=== PATIENT | male | born 1950 | race Caucasian/White ===

== ENCOUNTER 2018-05-30 07:24 | Day surgery (SDC) | payer MEDICARE, MEDICAID ==
[2018-05-29 13:06] LABS: BASOPHILS % (AUTO) 0.4 % (0-1); EOSINOPHILS # (AUTO) 0.3 X10'3 (0-0.9); EOSINOPHILS % (AUTO) 3.9 % (0-6); LYMPHOCYTES # (AUTO) 2.3 X10'3 (1.1-4.8); LYMPHOCYTES % (AUTO) 30.3 % (21-51); MEAN CORPUSCULAR HEMOGLOBIN 30.9 PG (27.0-31.0); MEAN CORPUSCULAR HGB CONC 34.3 g/dL (33.0-36.5); MEAN CORPUSCULAR VOLUME 89.9 FL (78-98); MEAN PLATELET VOLUME 8.1 FL (7.4-10.4); MONOCYTES # (AUTO) 0.5 X10'3 (0-0.9); MONOCYTES % (AUTO) 6.7 % (2-12); NEUTROPHILS # (AUTO) 4.4 X10'3 (1.8-7.7); NEUTROPHILS % (AUTO) 58.7 % (42-75); PRE OP HEMOGLOBIN 14.4 g/dL (14.0-17.9); RED BLOOD COUNT 4.67 X10'6 (4.70-6.10); RED CELL DISTRIBUTION WIDTH 14.1 % (11.5-14.5)
[2018-05-29 13:08] LABS: CLARITY,URINE CLEAR (Clear); COLOR,URINE YELLOW (Yellow); GLUCOSE, URINE NEGATIVE (Neg); KETONES,URINE NEGATIVE (Neg); LEUKOCYTE ESTERASE ,URINE NEGATIVE (Neg); NITRITES, URINE NEGATIVE (Neg); OCCULT BLOOD,URINE NEGATIVE (Neg); PROTEIN,URINE NEGATIVE (Neg); UROBILINOGEN,URINE 0.2 E.U/dL (0.2-1.0)
[2018-05-29 13:12] LABS: UA COLLECTION TYPE CLN CATCH MIDSTREAM
[2018-05-29 13:17] LABS: PRE OP PLATELET COUNT 99 X10'3 (140-440)
[2018-05-29 13:29] LABS: ALBUMIN 3.8 G/DL (3.4-5.0); ALBUMIN/GLOBULIN RATIO 1.2 (1.1-1.5); ALKALINE PHOSPHATASE 75 IU/L (46-116); BLOOD UREA NITROGEN 10 MG/DL (7-18); BUN/CREATININE RATIO 9.7 (5.4-32.0); CALCIUM 8.9 MG/DL (8.5-10.1); CHLORIDE 105 MMOL/L (99-107); CREATININE 1.03 MG/DL (0.60-1.10); PRE OP ALT 22 U/L (30-65); PRE OP ANION GAP 10 (8-16); PRE OP AST 18 U/L (10-37); PRE OP BILIRUB, TOTAL 0.5 MG/DL (0.0-1.0); PRE OP GLUCOSE 81 MG/DL (70-104); PRE OP POTASSIUM 3.8 MMOL/L (3.4-5.1); PRE OP SODIUM 141 MMOL/L (135-145); TOTAL CARBON DIOXIDE 25.6 MMOL/L (24-32); eGFR 71 ML/MIN
[2018-05-30] VITALS (14 sets, daily range): BP systolic 119–160; BP diastolic 52–95
[~2018-05-30] VITALS: Ht 165.1 cm; Wt 64.0 kg
[~2018-05-30 07:24] MED LIST: ALBU18HF2 INH; ASPI81TA30 PO; CLINDAmcin 900mg/NS 50ml IVPB 50 ML IV ONE; CLON-514 PO; CYCL5TAB PO; FLUT16SP2 BOTHNARES; IBUP-24 PO; SERT100T PO; albuterol 2.5 MG/3 ML nebule NEB ONE; famotidine 20mg tablet PO ONE; ringers solution, lacted 1,000 ML IV SCH
[2018-05-30] MEDS ORDERED: BUPIVAcaine/PF 2.5mg/ml (0.25%) 10ml vial ONE (09:35)
[2018-05-30] MEDS ORDERED: ceFAZolin 1000mg inj ONE (09:35)
[2018-05-30] MEDS ORDERED: sevoflurane 250ml liquid IH ONE (09:56)
[2018-05-30] MEDS ORDERED: fentaNYL/PF 50MCG/1 ML 2ML syringe ONE (10:01)
[2018-05-30] MEDS ORDERED: gentamicin 40 MG/1 ML inj ONE ×2 (10:16→10:17)
[2018-05-30] MEDS ORDERED: propofol inj 20 ML IV ONE (10:44)
[2018-05-30] MEDS ORDERED: LIDOcaine 2% (20mg/ml) 5ml vial ONE (10:44)
[2018-05-30] MEDS ORDERED: dexamethasone sod phosphate 4mg/ml inj. ONE (10:45)
[2018-05-30] MEDS ORDERED: ondansetron/PF 4mg/2ml inj ONE (10:45)
--- NOTE | 2018-05-30 10:55 | NUR ---
Received from OR via , accompanied by DR. LEGER, Anesthesiologist and report given by Anesthesiolgist. S/P LT. INGUINAL HERNIA REPAIR PER DR. TATUM. PT. AROUSES TO NAME. RESPS. EVEN & UNLABORED. LT. ABD. BANDAGE DRY & INTACT. ABD. SOFT. LT. ARM IV PATENT. PT. SHAKES HEAD NO TO PAIN. REASSURED.
[2018-05-30] MEDS ORDERED: ringers solution, lacted 1,000 ML IV SCH (10:56)
[2018-05-30] MEDS ORDERED: ondansetron/PF 4mg/2ml inj IV PRN (11:00)
[2018-05-30] MEDS ORDERED: HYDROmorphone inj. 0.5 MG/0.5 ML DISP.SYRIN IV PRN ×2 (11:00)
[2018-05-30] MEDS ORDERED: meperidine/PF 25mg/ml syringe IV PRN (11:00)
[2018-05-30] MEDS: meperidine/PF 25mg/ml syringe IV PRN ×3 (11:10→12:05)
--- NOTE | 2018-05-30 11:30 | NUR ---
MEDICATED FOR PAIN. REASSURED.
--- NOTE | 2018-05-30 12:08 | NUR ---
TAKING SIPS WATER WITHOUT UPSET. VOIDED, VIA URINAL [address] CL. YELLOW URINE. MEDICATED FOR PAIN. REASSURED.
--- NOTE | 2018-05-30 12:30 | NUR ---
PT. SITTING UP @ BEDSIDE. TOLERATED WELL. DRESSED W/ MINIMAL ASSIST. STEADY ON FEET. DENIES DIZZINESS/WEAKNESS/NAUSEA. FRIEND @ BEDSIDE. ACI'S REVIEWED W/ UNDERSTANDING OF SAME. MEDS DELIVERED PER RUCKER PLACED IN BELONGING BAG. IV DC'D CANNULA INTACT. AWAITING RIDE.
--- NOTE | 2018-05-30 12:40 | NUR ---
VOIDED [address]. YELLOW URINE WITHOUT DIFFICULTY.
--- NOTE | 2018-05-30 13:00 | NUR ---
TRANSFERED TO [facility] VIA GURNEY TO AWAIT RIDE ARRIVAL. PT. A X O X 4. APPROP. RESPS. EVEN & UNLABORED. ABD. SOFT, LT. ABD. BANDAGE DRY & INTACT. STATES PAIN 10/02, REASSURED. FRIEND @ BEDSIDE. OFFERS NO CONCERNS @ THIS TIME.
--- NOTE | 2018-05-30 13:06 | NUR ---
PATIENT ARRIVED RO 245A ON GURNEY FROM RECOVERY. VSS CHARTED. PATIENT RESTING IN BED, WAITING GOT RIDE.
--- NOTE | 2018-05-30 13:46 | NUR ---
PATIENT DISCHARGE TO PERSONAL VEHICLE WITH ALL PERSONAL BELONGINGS ACCOMPANIED BY STAFF AND FAMILY.
== END 2018-05-30 13:51 | disposition home or self-care (01) ==
LOC: PAS 07:24
PROVIDERS: ATTEND Surgery
DX: K40.91 Unilateral inguinal hernia, without obstruction or gangrene, recurrent (principal); K40.90 Unilateral inguinal hernia, without obstruction or gangrene, not specified as recurrent; I71.4 Abdominal aortic aneurysm, without rupture; J44.9 Chronic obstructive pulmonary disease, unspecified; F17.210 Nicotine dependence, cigarettes, uncomplicated; H91.8X3 Other specified hearing loss, bilateral; F32.89 Other specified depressive episodes; F41.8 Other specified anxiety disorders; Z87.09 Personal history of other diseases of the respiratory system; Z87.01 Personal history of pneumonia (recurrent); Z90.49 Acquired absence of other specified parts of digestive tract; Z90.89 Acquired absence of other organs; Z86.79 Personal history of other diseases of the circulatory system; Z96.651 Presence of right artificial knee joint; Z79.82 Long term (current) use of aspirin; Z79.1 Long term (current) use of non-steroidal anti-inflammatories (NSAID); Z98.890 Other specified postprocedural states; Z79.899 Other long term (current) drug therapy; Z88.0 Allergy status to penicillin; Z88.5 Allergy status to narcotic agent; Z82.3 Family history of stroke; Z81.8 Family history of other mental and behavioral disorders; Z82.49 Family history of ischemic heart disease and other diseases of the circulatory system
CPT/HCPCS: 36415; 49520; 80053; 81003; 82948; 85025; 93005; 94640; A6449; C1781; J0690; J1100; J1580; J2001; J2175; J2405; J2704; J3010; J3490; A7000; J7120

== ENCOUNTER 2018-12-12 06:11 | Inpatient (IN) | payer MEDICARE, MEDICAID ==
[2018-12-11 12:14] LABS: PRE OP PROTIME 10.5 SECONDS (9.0-12.0)
[2018-12-11 12:17] LABS: ALBUMIN/GLOBULIN RATIO 1.1 (1.1-1.5); ALKALINE PHOSPHATASE 90 IU/L (46-116); BLOOD UREA NITROGEN 17 MG/DL (7-18); BUN/CREATININE RATIO 15.5 (5.4-32.0); CALCIUM 8.9 MG/DL (8.5-10.1); CHLORIDE 104 MMOL/L (99-107); PRE OP ALT 21 U/L (30-65); PRE OP ANION GAP 9 (8-16); PRE OP AST 16 U/L (10-37); PRE OP BILIRUB, TOTAL 0.6 MG/DL (0.0-1.0); PRE OP GLUCOSE 84 MG/DL (70-104); PRE OP SODIUM 141 MMOL/L (135-145); TOTAL CARBON DIOXIDE 28.2 MMOL/L (24-32); TOTAL PROTEIN 7.6 G/DL (6.4-8.2); eGFR 66 ML/MIN
[2018-12-11 12:26] LABS: BASOPHILS % (AUTO) 0.6 % (0-1); EOSINOPHILS # (AUTO) 0.3 X10'3 (0-0.9); EOSINOPHILS % (AUTO) 3.6 % (0-6); LYMPHOCYTES # (AUTO) 2.2 X10'3 (1.1-4.8); LYMPHOCYTES % (AUTO) 28.2 % (21-51); MEAN CORPUSCULAR HEMOGLOBIN 30.2 PG (27.0-31.0); MEAN CORPUSCULAR HGB CONC 33.2 g/dL (33.0-36.5); MEAN CORPUSCULAR VOLUME 90.9 FL (78-98); MEAN PLATELET VOLUME 8.5 FL (7.4-10.4); MONOCYTES # (AUTO) 0.6 X10'3 (0-0.9); MONOCYTES % (AUTO) 7.6 % (2-12); NEUTROPHILS # (AUTO) 4.7 X10'3 (1.8-7.7); PRE OP HEMATOCRIT 45.6 % (42.0-52.0); PRE OP HEMOGLOBIN 15.2 g/dL (14.0-17.9); RED BLOOD COUNT 5.02 X10'6 (4.70-6.10); RED CELL DISTRIBUTION WIDTH 14.1 % (11.5-14.5)
[2018-12-11 12:31] LABS: PRE OP PLATELET COUNT 95 X10'3 (140-440)
[2018-12-11 12:50] LABS: CLARITY,URINE CLEAR (Clear); COLOR,URINE YELLOW (Yellow); GLUCOSE, URINE NEGATIVE (Neg); KETONES,URINE NEGATIVE (Neg); LEUKOCYTE ESTERASE ,URINE NEGATIVE (Neg); NITRITES, URINE NEGATIVE (Neg); OCCULT BLOOD,URINE NEGATIVE (Neg); PROTEIN,URINE NEGATIVE (Neg); UROBILINOGEN,URINE 0.2 E.U/dL (0.2-1.0)
[2018-12-11 12:54] LABS: UA COLLECTION TYPE CLN CATCH MIDSTREAM
[2018-12-12] VITALS (20 sets, daily range): BP systolic 130–164; BP diastolic 83–101
[~2018-12-12] VITALS: Ht 167.6 cm; Wt 62.3 kg
[~2018-12-12 06:11] MED LIST changes: -CLINDAmcin 900mg/NS 50ml IVPB 50 ML IV ONE; +clindamycin-Cleocin 900mg/D5W 50 ML IV ONE; -ringers solution, lacted 1,000 ML IV SCH
[2018-12-12] MEDS ORDERED: ipratropium/albuterol 3ml nebule ONE (07:47)
[2018-12-12] MEDS ORDERED: ipratropium/albuterol 3ml nebule NEB PRN (07:55)
[2018-12-12] MEDS ORDERED: LIDOcaine 1% (10mg/ml) 2ml vial ONE (08:12)
[2018-12-12] MEDS ORDERED: fentaNYL /PF 50mcg/ml 5ml ampule ONE (08:37)
[2018-12-12] MEDS ORDERED: sevoflurane 250ml liquid IH ONE (08:51)
[2018-12-12] MEDS ORDERED: BUPIVAcaine/PF 2.5 mg/ml (0.25%) 30ml vial ONE (09:27)
[2018-12-12] MEDS ORDERED: fentaNYL/PF 50MCG/1 ML 2ML syringe ONE (10:29)
--- NOTE | 2018-12-12 10:30 | NUR ---
ADMITTED TO PACU FROM OR ACCOMPANIED BY ANESTHESIA. INTIAL PHYSICAL ASSESSMENT DONE AND RECORDED. AWAKE AND RESPONSE ON ARRIVE YO PACU, REPORT RECEIVED FROM ANESTHESIA. JRIGHT RADIAL ART LINE AND CVP AIR ZEROED AND CALIBRATED WITH GOOD WAVE FORM. MEDICATED FOR SHIVERING ON ARRIVVAL. COMPLAINING OF PAIN, ALSO MEDICATED FOR PAIN.
[2018-12-12] MEDS ORDERED: ringers solution, lacted 1,000 ML IV SCH (10:37)
[2018-12-12] MEDS ORDERED: ondansetron/PF 4mg/2ml inj IV PRN (10:40)
[2018-12-12] MEDS ORDERED: HYDROmorphone inj. 0.5 MG/0.5 ML DISP.SYRIN IV PRN (10:40)
[2018-12-12] MEDS ORDERED: fentaNYL/PF 50MCG/1 ML 2ML syringe IV PRN (10:40)
[2018-12-12] MEDS ORDERED: meperidine/PF 25mg/ml syringe ONE (10:44)
[2018-12-12] MEDS ORDERED: labetalol 20mg/4ml (5mg/ml) syringe IV ONE (11:04)
[2018-12-12] MEDS ORDERED: propofol inj 20 ML IV ONE (11:04)
[2018-12-12] MEDS ORDERED: dexamethasone sod phosphate 4mg/ml inj. ONE (11:04)
[2018-12-12] MEDS ORDERED: ondansetron/PF 4mg/2ml inj ONE (11:04)
[2018-12-12] MEDS ORDERED: LIDOcaine 2% (20mg/ml) 5ml vial ONE (11:04)
[2018-12-12] MEDS ORDERED: glycopyrrolate 0.2mg/ml inj ONE (11:04)
[2018-12-12] MEDS ORDERED: rocuronium 10mg/ml inj IV ONE (11:04)
[2018-12-12] MEDS ORDERED: neostigmine methylsulfate 1 MG/ML 10ml vial ONE (11:04)
[2018-12-12] MEDS: fentaNYL/PF 50MCG/1 ML 2ML syringe IV PRN ×2 (11:23→11:36)
--- NOTE | 2018-12-12 12:05 | NUR ---
PACU DISCHARGE CRITERIA MET, REPORT GIVEN TO FLOOR. DENIES PAIN OR DISCOMFORT, TRANSFERRED TO ROOM IN STABLE GOOD CONDITION. UPDATE TO DR. LANGLEY REGARDING POST OP CHEST FILM, WILL SEE PT ON SURGICAL FLOOR.
[2018-12-12] MEDS: HYDROmorphone/NS 1 mg/ml CADD 50 ML IV SCH ×7 (12:35→23:00)
[2018-12-12] MEDS: ringers solution, lacted 1,000 ML IV SCH ×2 (12:37→18:34)
--- NOTE | 2018-12-12 18:17 | NUR ---
Patient in room [facility]. I have received report from JOSEPHINE Summers and had the opportunity to ask questions and assume patient care.
[2018-12-12] MEDS ORDERED: furosemide 10 MG/1 ML 10ml inj IV ONE (18:30)
[2018-12-12] MEDS ORDERED: cyclobenzaprine 10mg tablet PO PRN (18:45)
[2018-12-12] MEDS ORDERED: albuterol 2.5 MG/3 ML nebule NEB PRN (18:45)
--- NOTE | 2018-12-12 19:36 | NUR ---
JOSEPHINE Jordan double checked demand dosage change for patient's CADD pump to 0.3mg from 0.2mg per protocol
[2018-12-12] MEDS: ipratropium/albuterol 3ml nebule NEB SCH ×2 (19:53→23:36)
[2018-12-12] MEDS: clonazePAM 1mg tablet PO SCH (21:26)
[2018-12-13] VITALS: BP_SYST 81
[2018-12-13] MEDS: HYDROmorphone/NS 1 mg/ml CADD 50 ML IV SCH ×12 (01:00→23:00)
[2018-12-13] MEDS: ipratropium/albuterol 3ml nebule NEB SCH ×5 (03:09→19:30)
[2018-12-13 04:00] VITALS: BP 107/84
--- NOTE | 2018-12-13 06:29 | NUR ---
Problems reprioritized. Patient report given, questions answered & plan of care reviewed with JOSEPHINE Summers.
[2018-12-13] MEDS: fluticasone nasal spray 16GM bottle NS SCH (07:48)
[2018-12-13] MEDS: sertraline 50mg tablet PO SCH (07:49)
[2018-12-13] MEDS: aspirin 81mg tab.chew PO SCH (07:49)
[2018-12-13 08:00] VITALS: BP 106/83
[2018-12-13 11:00] VITALS: BP 100/80
--- NOTE | 2018-12-13 11:22 | NUR ---
breathing tx stopped early due to heart rate. RN notified. Addendum: 12/13/18 at 1122 by Alissa Dubose RT Amended: Links added.
[2018-12-13 11:28] LABS: BASOPHILS % (AUTO) 0.3 % (0-1); EOSINOPHILS % (AUTO) 0.1 % (0-6); HEMATOCRIT 52.3 % (42.0-52.0); HEMOGLOBIN 17.7 g/dl (14.0-17.9); LYMPHOCYTES # (AUTO) 1.3 X10'3 (1.1-4.8); LYMPHOCYTES % (AUTO) 7.1 % (21-51); MEAN CORPUSCULAR HEMOGLOBIN 30.6 PG (27.0-31.0); MEAN CORPUSCULAR HGB CONC 33.7 g/dL (33.0-36.5); MEAN CORPUSCULAR VOLUME 90.8 FL (78-98); MEAN PLATELET VOLUME 8.4 FL (7.4-10.4); MONOCYTES # (AUTO) 2.1 X10'3 (0-0.9); MONOCYTES % (AUTO) 11.6 % (2-12); NEUTROPHILS # (AUTO) 14.5 X10'3 (1.8-7.7); NEUTROPHILS % (AUTO) 80.9 % (42-75); PLATELET COUNT 137 X10'3 (140-440); RED BLOOD COUNT 5.76 X10'6 (4.70-6.10); RED CELL DISTRIBUTION WIDTH 14.3 % (11.5-14.5); WHITE BLOOD COUNT 17.9 X10'3 (4.5-11.0)
[2018-12-13 11:39] LABS: ALANINE AMINOTRANSFERASE 86 U/L (12-78); ALBUMIN 4.3 G/DL (3.4-5.0); ALKALINE PHOSPHATASE 109 IU/L (46-116); ANION GAP 11 (8-16); ASPARTATE AMINO TRANSFERASE 51 U/L (10-37); BILIRUBIN,TOTAL 1.7 MG/DL (0.1-1.0); BLOOD UREA NITROGEN 17 MG/DL (7-18); BUN/CREATININE RATIO 11.5 (5.4-32.0); CALCIUM 9.1 MG/DL (8.5-10.1); CHLORIDE 102 MMOL/L (99-107); CREATININE 1.48 MG/DL (0.60-1.10); GLUCOSE 142 MG/DL (70-104); POTASSIUM 4.7 MMOL/L (3.5-5.1); SODIUM 141 MMOL/L (135-145); TOTAL CARBON DIOXIDE 27.9 MMOL/L (24-32); TOTAL PROTEIN 8.4 G/DL (6.4-8.2); eGFR 47 ML/MIN
--- NOTE | 2018-12-13 12:15 | NUR ---
24 hour tele order placed.
[2018-12-13] MEDS ORDERED: carVEDilol 12.5mg tablet PO ONE (12:55)
[2018-12-13 14:15] LABS: PLATELET ESTIMATE DECREASED; TOTAL CELLS COUNTED 100
--- NOTE | 2018-12-13 15:58 | NUR ---
NG removed, FC removed, patient tolerated well.
[2018-12-13 18:00] VITALS: BP 97/74
--- NOTE | 2018-12-13 18:25 | NUR ---
Patient in room [facility]. I have received report from JOSEPHINE Summers and had the opportunity to ask questions and assume patient care.
[2018-12-13] MEDS: clonazePAM 1mg tablet PO SCH (20:45)
[2018-12-13] MEDS: carvedilol 6.25mg tablet PO SCH (20:46)
--- NOTE | 2018-12-13 21:00 | NUR ---
Central line discontinued. pt tolerated well. will continue to monitor
[2018-12-13] MEDS ORDERED: pneumococcal 23-VAL P-sac vacc 25 mcg/0.5ml vial IMVAC ONE (21:05)
[2018-12-13] MEDS ORDERED: magnesium 4gm in 100ml NS 100 ML IV PRN (21:10)
[2018-12-13] MEDS ORDERED: potassium CL 10mEq/100ml bag 100 ML IV PRN (21:10)
[2018-12-13] MEDS ORDERED: potassium Cl 20 mEq SR tablet PO PRN ×2 (21:10)
[2018-12-13] MEDS ORDERED: magnesium Cl slow-release 64mg tablet PO PRN (21:10)
--- NOTE | 2018-12-13 22:30 | NUR ---
attempted to ambulate pt. pt stood up out of bed twice, on second time stated "i'm having a head mcclendon" became nauseated and vomited. emesis appeared to be undigested dinner. placed back into bed. denies any further complaints of n/v. will continue to monitor
[2018-12-14] VITALS: BP 103/71
[2018-12-14] MEDS: HYDROmorphone/NS 1 mg/ml CADD 50 ML IV SCH ×12 (01:00→23:00)
[2018-12-14 05:05] LABS: ALANINE AMINOTRANSFERASE 69 U/L (12-78); ALBUMIN 3.8 G/DL (3.4-5.0); ALKALINE PHOSPHATASE 96 IU/L (46-116); ANION GAP 9 (8-16); ASPARTATE AMINO TRANSFERASE 33 U/L (10-37); BILIRUBIN,TOTAL 1.6 MG/DL (0.1-1.0); BLOOD UREA NITROGEN 32 MG/DL (7-18); BUN/CREATININE RATIO 15.6 (5.4-32.0); CALCIUM 9.1 MG/DL (8.5-10.1); CHLORIDE 102 MMOL/L (99-107); CREATININE 2.05 MG/DL (0.60-1.10); GLUCOSE 172 MG/DL (70-104); MAGNESIUM 2.2 MG/DL (1.5-2.4); PHOSPHORUS 3.1 MG/DL (2.3-4.5); POTASSIUM 4.1 MMOL/L (3.5-5.1); SODIUM 139 MMOL/L (135-145); TOTAL PROTEIN 7.8 G/DL (6.4-8.2); eGFR 32 ML/MIN
[2018-12-14] MEDS ORDERED: ringers solution, lacted 1,000 ML IV SCH (05:50)
--- NOTE | 2018-12-14 06:24 | NUR ---
Problems reprioritized. Patient report given, questions answered & plan of care reviewed with JOSEPHINE Gonzalez.
--- NOTE | 2018-12-14 06:25 | NUR ---
Patient in room [facility]. I have received report from JOSEPHINE Hernadez and had the opportunity to ask questions and assume patient care.
[2018-12-14 08:00] VITALS: BP 107/78
[2018-12-14] MEDS: carvedilol 6.25mg tablet PO SCH ×2 (08:21→20:38)
[2018-12-14] MEDS: aspirin 81mg tab.chew PO SCH (08:21)
[2018-12-14] MEDS: fluticasone nasal spray 16GM bottle NS SCH (08:21)
[2018-12-14] MEDS: sertraline 50mg tablet PO SCH (08:21)
[2018-12-14] MEDS ORDERED: normal saline 1000ml 1,000 ML IV ONE (09:50)
[2018-12-14 10:16] LABS: BASOPHILS % (AUTO) 0.2 % (0-1); EOSINOPHILS % (AUTO) 0 % (0-6); HEMATOCRIT 43.9 % (42.0-52.0); HEMOGLOBIN 14.8 g/dl (14.0-17.9); LYMPHOCYTES # (AUTO) 1.6 X10'3 (1.1-4.8); LYMPHOCYTES % (AUTO) 7.1 % (21-51); MEAN CORPUSCULAR HEMOGLOBIN 30.9 PG (27.0-31.0); MEAN CORPUSCULAR HGB CONC 33.8 g/dL (33.0-36.5); MEAN CORPUSCULAR VOLUME 91.3 FL (78-98); MEAN PLATELET VOLUME 8.9 FL (7.4-10.4); MONOCYTES % (AUTO) 13.7 % (2-12); NEUTROPHILS # (AUTO) 17.4 X10'3 (1.8-7.7); PLATELET COUNT 130 X10'3 (140-440)
[2018-12-14] MEDS: normal saline 1000ml 1,000 ML IV SCH ×2 (10:17→22:24)
[2018-12-14 12:00] VITALS: BP 118/82
[2018-12-14 18:00] VITALS: BP 109/77
--- NOTE | 2018-12-14 18:15 | NUR ---
Patient in room [facility]. I have received report from JOSEPHINE Gonzalez and had the opportunity to ask questions and assume patient care.
--- NOTE | 2018-12-14 18:23 | NUR ---
Problems reprioritized. Patient report given, questions answered & plan of care reviewed with JOSEPHINE Hernadez.
[2018-12-14] MEDS ORDERED: cefepime 2g/NS 100ml ADVANTAGE 100 ML IV ONE (20:30)
[2018-12-14] MEDS: clonazePAM 1mg tablet PO SCH (20:38)
[2018-12-14] MEDS ORDERED: vancomycin/NS 1 GM ADD-VANTAGE 250 ML X 1 DOSE IV SCH (21:00)
[2018-12-15] VITALS: BP 121/75
[2018-12-15] MEDS: HYDROmorphone/NS 1 mg/ml CADD 50 ML IV SCH ×12 (01:00→23:00)
[2018-12-15 04:48] LABS: BASOPHILS # (AUTO) 0.1 X10'3 (0-0.2); BASOPHILS % (AUTO) 0.3 % (0-1); EOSINOPHILS # (AUTO) 0.2 X10'3 (0-0.9); EOSINOPHILS % (AUTO) 0.8 % (0-6); HEMATOCRIT 34.3 % (42.0-52.0); HEMOGLOBIN 11.5 g/dl (14.0-17.9); LYMPHOCYTES # (AUTO) 1.1 X10'3 (1.1-4.8); LYMPHOCYTES % (AUTO) 5.7 % (21-51); MEAN CORPUSCULAR HEMOGLOBIN 30.3 PG (27.0-31.0); MEAN CORPUSCULAR HGB CONC 33.6 g/dL (33.0-36.5); MEAN CORPUSCULAR VOLUME 90.2 FL (78-98); MEAN PLATELET VOLUME 8.1 FL (7.4-10.4); MONOCYTES % (AUTO) 10.1 % (2-12); NEUTROPHILS # (AUTO) 16.6 X10'3 (1.8-7.7); NEUTROPHILS % (AUTO) 83.1 % (42-75); PLATELET COUNT 135 X10'3 (140-440); RED BLOOD COUNT 3.81 X10'6 (4.70-6.10); RED CELL DISTRIBUTION WIDTH 13.6 % (11.5-14.5)
[2018-12-15 05:00] LABS: ALANINE AMINOTRANSFERASE 47 U/L (12-78); ALBUMIN/GLOBULIN RATIO 0.9 (1.1-1.5); ALKALINE PHOSPHATASE 73 IU/L (46-116); ANION GAP 4 (8-16); ASPARTATE AMINO TRANSFERASE 35 U/L (10-37); BILIRUBIN,TOTAL 1.5 MG/DL (0.1-1.0); BLOOD UREA NITROGEN 21 MG/DL (7-18); BUN/CREATININE RATIO 21.9 (5.4-32.0); CALCIUM 7.7 MG/DL (8.5-10.1); CHLORIDE 104 MMOL/L (99-107); CREATININE 0.96 MG/DL (0.60-1.10); GLUCOSE 100 MG/DL (70-104); MAGNESIUM 1.8 MG/DL (1.5-2.4); PHOSPHORUS 1.6 MG/DL (2.3-4.5); POTASSIUM 3.9 MMOL/L (3.5-5.1); SODIUM 137 MMOL/L (135-145); TOTAL CARBON DIOXIDE 29.2 MMOL/L (24-32); TOTAL PROTEIN 6.3 G/DL (6.4-8.2); eGFR 77 ML/MIN
--- NOTE | 2018-12-15 06:38 | NUR ---
Problems reprioritized. Patient report given, questions answered & plan of care reviewed with JOSEPHINE Mitchell.
[2018-12-15 07:15] VITALS: BP 111/72
[2018-12-15] MEDS ORDERED: cefepime 2gm inj IV SCH (08:00)
[2018-12-15] MEDS: aspirin 81mg tab.chew PO SCH (08:17)
[2018-12-15] MEDS: carvedilol 6.25mg tablet PO SCH ×2 (08:17→19:58)
[2018-12-15] MEDS: sertraline 50mg tablet PO SCH (08:17)
[2018-12-15] MEDS: cefepime 2g/NS 100ml ADVANTAGE 100 ML IV SCH ×2 (08:17→20:49)
[2018-12-15] MEDS: fluticasone nasal spray 16GM bottle NS SCH (08:17)
[2018-12-15] MEDS ORDERED: pneumococcal 23-VAL P-sac vacc 25 mcg/0.5ml vial IMVAC ONE (09:00)
[2018-12-15] MEDS: vancomycin/NS 1 GM ADD-VANTAGE 250 ML X 1 DOSE IV SCH ×2 (10:05→22:21)
[2018-12-15 11:00] VITALS: BP 107/65
[2018-12-15] MEDS ORDERED: potassium phosphate inj 30 MMOL in normal saline 500ml IV soln 490 ML IV ONE (13:20)
[2018-12-15] MEDS: normal saline 1000ml 1,000 ML IV SCH (14:12)
[2018-12-15 18:00] VITALS: BP 114/62
--- NOTE | 2018-12-15 18:14 | NUR ---
Problems reprioritized. Patient report given, questions answered & plan of care reviewed with Janelle RN and JOSEPHINE Zuñiga.
[2018-12-15] MEDS: lactobacillus rhamnosus 10,000 MMU CELLS/CAPSULE PO SCH (19:58)
[2018-12-15 20:00] VITALS: BP 114/62
[2018-12-15] MEDS: clonazePAM 1mg tablet PO SCH (21:14)
[2018-12-16] VITALS: BP 126/76
[2018-12-16] MEDS: HYDROmorphone/NS 1 mg/ml CADD 50 ML IV SCH ×6 (01:00→11:00)
[2018-12-16] MEDS: normal saline 1000ml 1,000 ML IV SCH (05:10)
[2018-12-16 05:15] LABS: BASOPHILS # (AUTO) 0.1 X10'3 (0-0.2); BASOPHILS % (AUTO) 0.3 % (0-1); EOSINOPHILS # (AUTO) 0.5 X10'3 (0-0.9); HEMATOCRIT 28.4 % (42.0-52.0); HEMOGLOBIN 9.7 g/dl (14.0-17.9); LYMPHOCYTES # (AUTO) 1.1 X10'3 (1.1-4.8); LYMPHOCYTES % (AUTO) 7.4 % (21-51); MEAN CORPUSCULAR HEMOGLOBIN 31.1 PG (27.0-31.0); MEAN CORPUSCULAR HGB CONC 34.3 g/dL (33.0-36.5); MEAN CORPUSCULAR VOLUME 90.7 FL (78-98); MEAN PLATELET VOLUME 8.4 FL (7.4-10.4); MONOCYTES # (AUTO) 1.7 X10'3 (0-0.9); MONOCYTES % (AUTO) 11.1 % (2-12); NEUTROPHILS # (AUTO) 11.7 X10'3 (1.8-7.7); NEUTROPHILS % (AUTO) 78.2 % (42-75); PLATELET COUNT 151 X10'3 (140-440); RED BLOOD COUNT 3.13 X10'6 (4.70-6.10); RED CELL DISTRIBUTION WIDTH 13.6 % (11.5-14.5)
[2018-12-16 05:33] LABS: ALANINE AMINOTRANSFERASE 34 U/L (12-78); ALBUMIN 2.7 G/DL (3.4-5.0); ALBUMIN/GLOBULIN RATIO 0.9 (1.1-1.5); ALKALINE PHOSPHATASE 65 IU/L (46-116); ANION GAP 5 (8-16); ASPARTATE AMINO TRANSFERASE 26 U/L (10-37); BILIRUBIN,TOTAL 1.2 MG/DL (0.1-1.0); BLOOD UREA NITROGEN 15 MG/DL (7-18); CALCIUM 7.7 MG/DL (8.5-10.1); CHLORIDE 110 MMOL/L (99-107); CREATININE 0.75 MG/DL (0.60-1.10); GLUCOSE 100 MG/DL (70-104); MAGNESIUM 1.9 MG/DL (1.5-2.4); PHOSPHORUS 1.8 MG/DL (2.3-4.5); POTASSIUM 3.8 MMOL/L (3.5-5.1); SODIUM 140 MMOL/L (135-145); TOTAL CARBON DIOXIDE 25.2 MMOL/L (24-32); TOTAL PROTEIN 5.6 G/DL (6.4-8.2); eGFR > 90 ML/MIN
--- NOTE | 2018-12-16 06:35 | NUR ---
Problems reprioritized. Patient report given, questions answered & plan of care reviewed with JOSEPHINE Simmons.
--- NOTE | 2018-12-16 06:37 | NUR ---
Patient in room [facility]. I have received report from Janelle BURTON and had the opportunity to ask questions and assume patient care.
[2018-12-16 07:37] VITALS: BP 105/62
[2018-12-16] MEDS ORDERED: VANCOMYCIN LEVEL IV ONE (08:30)
[2018-12-16] MEDS: cefepime 2g/NS 100ml ADVANTAGE 100 ML IV SCH ×2 (08:33→21:04)
[2018-12-16] MEDS: lactobacillus rhamnosus 10,000 MMU CELLS/CAPSULE PO SCH ×2 (08:33→20:59)
[2018-12-16] MEDS: sertraline 50mg tablet PO SCH (08:34)
[2018-12-16] MEDS: aspirin 81mg tab.chew PO SCH (08:34)
[2018-12-16] MEDS: carvedilol 6.25mg tablet PO SCH ×2 (08:34→21:00)
[2018-12-16] MEDS: vancomycin/NS 1 GM ADD-VANTAGE 250 ML X 1 DOSE IV SCH (09:23)
[2018-12-16] MEDS: fluticasone nasal spray 16GM bottle NS SCH (09:55)
[2018-12-16] MEDS ORDERED: pneumococcal 23-VAL P-sac vacc 25 mcg/0.5ml vial IMVAC ONE (10:00)
[2018-12-16] MEDS ORDERED: HYDROcodone/acetaminophen 10/325mg tab PO PRN (11:25)
[2018-12-16] MEDS ORDERED: HYDROcodone/acetaminophen 5mg/325mg tablet PO PRN (11:25)
[2018-12-16] MEDS ORDERED: CADD PCA waste documentation MC PRN (11:35)
[2018-12-16] MEDS ORDERED: bisacodyl 10mg suppository rectal RC STA (11:45)
[2018-12-16] MEDS: docusate sod 100mg capsule PO SCH ×2 (12:46→21:00)
[2018-12-16 13:36] VITALS: BP 110/76
--- NOTE | 2018-12-16 14:01 | NUR ---
Patient states primary doctor is Dr Charles in [facility]. Today is tuesday so I can not call to confirm if patient has received his pneumonia vaccine.
[2018-12-16] MEDS ORDERED: bisacodyl 10mg suppository rectal RC ONE (14:58)
[2018-12-16] MEDS ORDERED: potassium phosphate inj 30 MMOL in normal saline 500ml IV soln 490 ML IV ONE (16:25)
[2018-12-16] MEDS: azithromycin 250mg tablet PO SCH (17:55)
[2018-12-16 18:00] VITALS: BP 121/73
--- NOTE | 2018-12-16 18:54 | NUR ---
Problems reprioritized. Patient report given, questions answered & plan of care reviewed with Deidra BURTON.
[2018-12-16] MEDS: clonazePAM 1mg tablet PO SCH (20:59)
[2018-12-17] VITALS: BP 115/65
[2018-12-17 05:21] LABS: BASOPHILS # (AUTO) 0.1 X10'3 (0-0.2); BASOPHILS % (AUTO) 0.5 % (0-1); EOSINOPHILS # (AUTO) 0.6 X10'3 (0-0.9); EOSINOPHILS % (AUTO) 3.5 % (0-6); HEMATOCRIT 28.8 % (42.0-52.0); HEMOGLOBIN 9.8 g/dl (14.0-17.9); LYMPHOCYTES # (AUTO) 1.3 X10'3 (1.1-4.8); LYMPHOCYTES % (AUTO) 8.3 % (21-51); MEAN CORPUSCULAR HEMOGLOBIN 30.8 PG (27.0-31.0); MEAN CORPUSCULAR HGB CONC 34.2 g/dL (33.0-36.5); MEAN CORPUSCULAR VOLUME 89.9 FL (78-98); MEAN PLATELET VOLUME 7.9 FL (7.4-10.4); MONOCYTES % (AUTO) 12.4 % (2-12); NEUTROPHILS % (AUTO) 75.3 % (42-75); PLATELET COUNT 214 X10'3 (140-440); RED CELL DISTRIBUTION WIDTH 13.3 % (11.5-14.5); WHITE BLOOD COUNT 15.9 X10'3 (4.5-11.0)
[2018-12-17 05:22] LABS: ALANINE AMINOTRANSFERASE 40 U/L (12-78); ALBUMIN 2.7 G/DL (3.4-5.0); ALBUMIN/GLOBULIN RATIO 0.9 (1.1-1.5); ALKALINE PHOSPHATASE 72 IU/L (46-116); ANION GAP 7 (8-16); ASPARTATE AMINO TRANSFERASE 31 U/L (10-37); BILIRUBIN,TOTAL 1.5 MG/DL (0.1-1.0); BLOOD UREA NITROGEN 10 MG/DL (7-18); BUN/CREATININE RATIO 13.3 (5.4-32.0); CALCIUM 7.9 MG/DL (8.5-10.1); CHLORIDE 107 MMOL/L (99-107); CREATININE 0.75 MG/DL (0.60-1.10); GLUCOSE 103 MG/DL (70-104); PHOSPHORUS 2.5 MG/DL (2.3-4.5); POTASSIUM 3.7 MMOL/L (3.5-5.1); SODIUM 140 MMOL/L (135-145); TOTAL CARBON DIOXIDE 25.6 MMOL/L (24-32); TOTAL PROTEIN 5.7 G/DL (6.4-8.2); eGFR > 90 ML/MIN
--- NOTE | 2018-12-17 06:15 | NUR ---
Patient in room [facility]. I have received report from JOSEPHINE Zuñiga and had the opportunity to ask questions and assume patient care.
[2018-12-17 06:30] VITALS: BP 127/78
[2018-12-17] MEDS: lactobacillus rhamnosus 10,000 MMU CELLS/CAPSULE PO SCH ×2 (08:50→20:15)
[2018-12-17] MEDS: sertraline 50mg tablet PO SCH (08:50)
[2018-12-17] MEDS: docusate sod 100mg capsule PO SCH ×2 (08:50→20:16)
[2018-12-17] MEDS: azithromycin 250mg tablet PO SCH (08:50)
[2018-12-17] MEDS: aspirin 81mg tab.chew PO SCH (08:50)
[2018-12-17] MEDS: carvedilol 6.25mg tablet PO SCH ×2 (08:50→20:15)
[2018-12-17] MEDS: cefepime 2g/NS 100ml ADVANTAGE 100 ML IV SCH ×2 (08:51→20:18)
[2018-12-17] MEDS: fluticasone nasal spray 16GM bottle NS SCH (08:51)
[2018-12-17 11:00] VITALS: BP 122/77
[2018-12-17] MEDS: acetaminophen 325mg tablet PO PRN (16:21)
[2018-12-17 18:00] VITALS: BP 126/79
--- NOTE | 2018-12-17 18:25 | NUR ---
Problems reprioritized. Patient report given, questions answered & plan of care reviewed with JOSEPHINE Wang.
--- NOTE | 2018-12-17 18:54 | NUR ---
Patient in room [facility]. I have received report from JOSEPHINE Dahl and had the opportunity to ask questions and assume patient care.
[2018-12-17] MEDS: clonazePAM 1mg tablet PO SCH (20:15)
[2018-12-18 00:20] VITALS: BP 135/81
--- NOTE | 2018-12-18 06:10 | NUR ---
Patient in room [facility]. I have received report from JOSEPHINE Wang and had the opportunity to ask questions and assume patient care.
--- NOTE | 2018-12-18 06:28 | NUR ---
Problems reprioritized. Patient report given, questions answered & plan of care reviewed with JOSEPHINE Dahl.
[2018-12-18 06:30] VITALS: BP 142/86
[2018-12-18] MEDS: cefepime 2g/NS 100ml ADVANTAGE 100 ML IV SCH (07:49)
[2018-12-18] MEDS: sertraline 50mg tablet PO SCH (07:50)
[2018-12-18] MEDS: carvedilol 6.25mg tablet PO SCH (07:50)
[2018-12-18] MEDS: aspirin 81mg tab.chew PO SCH (07:50)
[2018-12-18] MEDS: fluticasone nasal spray 16GM bottle NS SCH (07:50)
[2018-12-18] MEDS: acetaminophen 325mg tablet PO PRN (07:50)
[2018-12-18] MEDS: azithromycin 250mg tablet PO SCH (07:50)
[2018-12-18] MEDS: docusate sod 100mg capsule PO SCH (07:50)
[2018-12-18] MEDS: lactobacillus rhamnosus 10,000 MMU CELLS/CAPSULE PO SCH (07:50)
[2018-12-18] MEDS ORDERED: VANCOMYCIN LEVEL IV ONE ×2 (08:30→20:30)
[2018-12-18 10:48] LABS: BASOPHILS # (AUTO) 0.1 X10'3 (0-0.2); BASOPHILS % (AUTO) 0.6 % (0-1); EOSINOPHILS # (AUTO) 0.7 X10'3 (0-0.9); EOSINOPHILS % (AUTO) 4.7 % (0-6); HEMATOCRIT 30.4 % (42.0-52.0); HEMOGLOBIN 10.2 g/dl (14.0-17.9); LYMPHOCYTES # (AUTO) 1.3 X10'3 (1.1-4.8); LYMPHOCYTES % (AUTO) 8.3 % (21-51); MEAN CORPUSCULAR HEMOGLOBIN 30.6 PG (27.0-31.0); MEAN CORPUSCULAR HGB CONC 33.6 g/dL (33.0-36.5); MEAN PLATELET VOLUME 7.8 FL (7.4-10.4); MONOCYTES # (AUTO) 2.3 X10'3 (0-0.9); MONOCYTES % (AUTO) 14.6 % (2-12); NEUTROPHILS # (AUTO) 11.1 X10'3 (1.8-7.7); NEUTROPHILS % (AUTO) 71.8 % (42-75); PLATELET COUNT 299 X10'3 (140-440); RED BLOOD COUNT 3.33 X10'6 (4.70-6.10); RED CELL DISTRIBUTION WIDTH 13.5 % (11.5-14.5); WHITE BLOOD COUNT 15.5 X10'3 (4.5-11.0)
[2018-12-18 11:00] VITALS: BP 118/70
[2018-12-18 11:01] LABS: GLUCOSE 104 MG/DL (70-104)
[2018-12-18 11:02] LABS: ALANINE AMINOTRANSFERASE 51 U/L (12-78); ALBUMIN 2.6 G/DL (3.4-5.0); ALBUMIN/GLOBULIN RATIO 0.7 (1.1-1.5); ALKALINE PHOSPHATASE 86 IU/L (46-116); ANION GAP 9 (8-16); ASPARTATE AMINO TRANSFERASE 44 U/L (10-37); BILIRUBIN,TOTAL 1.5 MG/DL (0.1-1.0); BLOOD UREA NITROGEN 14 MG/DL (7-18); BUN/CREATININE RATIO 17.9 (5.4-32.0); CALCIUM 8.2 MG/DL (8.5-10.1); CHLORIDE 107 MMOL/L (99-107); CREATININE 0.78 MG/DL (0.60-1.10); PHOSPHORUS 2.7 MG/DL (2.3-4.5); POTASSIUM 3.6 MMOL/L (3.5-5.1); SODIUM 141 MMOL/L (135-145); TOTAL CARBON DIOXIDE 25.4 MMOL/L (24-32); TOTAL PROTEIN 6.1 G/DL (6.4-8.2); eGFR > 90 ML/MIN
[2018-12-18 11:29] LABS: PLATELET ESTIMATE NORMAL; TOTAL CELLS COUNTED 100
[2018-12-18] MEDS ORDERED: pneumococcal 23-VAL P-sac vacc 25 mcg/0.5ml vial IMVAC ONE (12:20)
[2018-12-18] MEDS ORDERED: mening vac A,C,Y,W-135 dip/PF 4 mcg/0.5 ml vaccine IMVAC ONE (12:35)
[2018-12-18] MEDS ORDERED: haemoph B poly conj-tet tox/PF 10mcg/0.5ml vial IMVAC ONE (12:35)
[2018-12-18] MEDS ORDERED: ACET-2119 PO (13:47)
--- NOTE | 2018-12-18 14:40 | NUR ---
DC inst provided to pt & S.O. IVs DC'd, tips intact. All belongings sent w/pt. WC to front lobby.
[2018-12-18 14:53] LABS: HIV ANTIBODY 1&2 RAPID NON-REACTIVE (Neg)
== END 2018-12-18 14:40 | disposition home or self-care (01) | DRG 799 ==
LOC: PAS 06:11 → SUR 3N 11:23
PROVIDERS: ADMIT Surgery; ATTEND Family Medicine
PROC: 02HV33Z Insertion of Infusion Device into Superior Vena Cava, Percutaneous Approach (ICD-10-PCS; 2018-12-12)
PROC: 07TP0ZZ Resection of Spleen, Open Approach (ICD-10-PCS; principal; 2018-12-12 08:51)
PROC: 3E0234Z Introduction of Serum, Toxoid and Vaccine into Muscle, Percutaneous Approach (ICD-10-PCS; 2018-12-18)
DX: D73.89 Other diseases of spleen (principal); N17.0 Acute kidney failure with tubular necrosis; J81.1 Chronic pulmonary edema; F12.10 Cannabis abuse, uncomplicated; J44.9 Chronic obstructive pulmonary disease, unspecified; R00.0 Tachycardia, unspecified; I10 Essential (primary) hypertension; R50.82 Postprocedural fever; F32.9 Major depressive disorder, single episode, unspecified; Z87.891 Personal history of nicotine dependence; Z88.0 Allergy status to penicillin; Z88.1 Allergy status to other antibiotic agents; Z23 Encounter for immunization; Z79.899 Other long term (current) drug therapy; Z71.51 Drug abuse counseling and surveillance of drug abuser
CPT/HCPCS: 36415; 71045; 71046; 80053; 80202; 81003; 82948; 83605; 83735; 83880; 84100; 84145; 85025; 85610; 85730; 86703; 86885; 86900; 86901; 86920; 87040; 87081; 87088; 88305; 90648; 90732; 93005; 94640; 94760; A4618; A6449; A7000; C1758; G0378; J0692; J1100; J1170; J1644; J1940; J2001; J2175; J2405; J2704; J2710; J3010; J3370; J3490; J7030; J7040; J7120